=== PATIENT | male | born 1965 | race African-American/Black ===

== ENCOUNTER 2018-02-13 00:28 | Emergency (ER) | payer OTHER ==
[~2018-02-13] VITALS: Ht 172.7 cm; Wt 83.0 kg
[2018-02-13] MEDS ORDERED: LORAZEPAM 2MG/ML CPJ IM ONE ×2 (01:30→04:15)
[2018-02-13] MEDS ORDERED: DIPHENHYDRAMINE 50MG/ML VIAL IM ONE (03:15)
[2018-02-13] MEDS ORDERED: HALOPERIDOL LACTATE 5MG/ML VIAL IM ONE (03:45)
[2018-02-13] MEDS ORDERED: LORAZEPAM 2MG/ML CPJ IV STA (04:04)
[2018-02-13] MEDS ORDERED: SODIUM CHLORIDE 0.9% 1,000 ML IV ONE (04:04)
[2018-02-13] MEDS ORDERED: LORAZEPAM 2MG/ML CPJ ONE (04:11)
[2018-02-13 04:50] LABS: BASOPHILS % 0.7 % (0.0-2.0); EOSINOPHILS % 0.3 % (0.0-5.0); HEMATOCRIT. 40.6 % (42.0-52.0); HEMOGLOBIN. 13.5 g/dL (14.0-18.0); LYMPHOCYTES % 18.2 % (20.0-50.0); MEAN CORPUSCULAR HEMOGLOBIN 29.8 pg (28.0-32.0); MEAN CORPUSCULAR VOLUME 89.9 fL (80.0-94.0); MEAN PLATELET VOLUME 7.9 fl (7.4-10.4); MONOCYTES % 9.2 % (2.0-8.0); NEUTROPHILS % 71.6 % (40.0-76.0); PLATELET 338 x1000/uL (130-400); RED BLOOD CELL COUNT 4.52 mill/uL (4.7-6.1); RED CELL DISTRIBUTION WIDTH 16.8 % (11.6-14.6)
[2018-02-13 04:58] LABS: INR 1.3; PROTHROMBIN TIME 12.7 sec (9.1-11.1)
[2018-02-13 05:00] LABS: ETHANOL BLOOD 122 mg/dL
[2018-02-13] MEDS ORDERED: DEXTROSE 50% WATER 50ML SYRINGE IV ONE (05:15)
[2018-02-13] MEDS ORDERED: TETANUS, DIPHTHERIA, PERTUSSIS VAC/PF 0.5ML (>7YR OLD) IM ONE (05:15)
[2018-02-13 05:26] VITALS: BP 141/93
[2018-02-13 05:39] LABS: CHLORIDE 106 mEq/L (98-107)
== END 2018-02-13 06:46 | disposition short-term general hospital (02) ==
LOC: ER 00:28 → CANBEDREQ 07:28
DX: S06.309A Unspecified focal traumatic brain injury with loss of consciousness of unspecified duration, initial encounter (principal); S01.81XA Laceration without foreign body of other part of head, initial encounter; G93.40 Encephalopathy, unspecified; M25.471 Effusion, right ankle; E16.2 Hypoglycemia, unspecified; F10.129 Alcohol abuse with intoxication, unspecified; Y90.6 Blood alcohol level of 120-199 mg/100 ml; Y08.89XA Assault by other specified means, initial encounter; Y93.89 Activity, other specified; Y92.89 Other specified places as the place of occurrence of the external cause
CPT/HCPCS: 36415; 70450; 71045; 80053; 82962; 84484; 85025; 85610; 90715; 93005; 96361; 96372; 96374; 99291; G0482; J1200; J1630; J2060; J7030